=== PATIENT | female | born 1980 | race Caucasian/White ===

== ENCOUNTER 2018-04-14 06:50 | Day surgery (SDC) | payer MEDICAID, SELFPAY ==
[2018-04-14] VITALS (12 sets, daily range): BP systolic 105–152; BP diastolic 61–87; PULSE 62–90; RESP 12–18; TEMP 36.8–37.2; O2SAT 94–98
--- NOTE | 2018-04-14 08:34 | W.PM.DSUDISC ---
Discharge Plan Disposition Patient Disposition: HOME Condition: Good Discharge Details Attending Provider: Francesco Anaya Home Meds and New Rx's Prescriptions: New cephalexin [Keflex] 500 mg capsule 500 mg PO TID Qty: 21 RF: 0 morphine 15 mg tablet 15 mg PO Q6H PRN (Reason: pain) Qty: 10 RF: 0 Continue silver sulfadiazine [SSD] 1 % Cream 1 applic TOPICAL DAILY RF: 0 omega-3 fatty acids 1,000 mg Capsule 1 cap PO DAILY RF: 0 sertraline 100 mg Tablet 200 mg PO HS RF: 0 melatonin 3 mg Tablet 9 mg PO HS PRNRF: 0 vitamin B complex Capsule 1 cap PO DAILY RF: 0 cholecalciferol (vitamin D3) [Vitamin D3] 1,000 unit Capsule 1,000 unit PO DAILY RF: 0 pregabalin [Lyrica] 50 mg Capsule 100 mg PO HS RF: 0 pregabalin [Lyrica] 50 mg Capsule 50 mg PO .QAM RF: 0 Discharge Instructions Activity:: head of bed > 30 degrees Diet:: As Tolerated Discharge Orders Discharge Orders: Discharge Order (Routine); Ordered 04/14/18 Ordered By: Francesco Anaya DS: Diagnosis Discharge Diagnosis (1) Collapse of nasal valve: Status: Chronic (2) Nasal turbinate hypertrophy: Status: Chronic (3) Nasal septal spur: Status: Chronic (4) Sleep apnea in adult: Status: Chronic
[2018-04-14] MEDS: Lactated Ringers 1,000 ML 80 ML IV ×2 (08:39→09:26)
[2018-04-14] MEDS: Oxymetazolone 0.05% SPRAY 15 ML BTL (09:07)
[2018-04-14] MEDS: Ondansetron 4 MG/2 ML VIAL IVP (10:26)
[2018-04-14] MEDS: MORPHine 10 MG/ML VIAL IVP (10:33)
[2018-04-14] MEDS: ACETAMINOPHEN 1,000 MG/100 ML BTL 400 MG IVPB (10:50)
[2018-04-14] MEDS: Midazolam 2 MG/2 ML VIAL IVP (11:24)
[2018-04-14] MEDS: Normal Saline 10 ML VIAL IJ (12:32)
--- NOTE | 2018-04-14 15:21 | ROE_ITS ---
DATE OF PROCEDURE: April 14, 2018 PREOPERATIVE DIAGNOSIS: 1. Chronic nasal obstruction. 2. 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 3. Central sleep apnea. 4. Inferior turbinate hypertrophy. 5. Chronic nasal difficulty breathing. 6. Nasal septal deviation to the left. POSTOPERATIVE DIAGNOSIS: Same. PROCEDURE: 1. Nasal septal reconstruction. 2. Bilateral submucosal resection of inferior turbinates. 3. Bilateral repair of internal nasal valve with homograft and chalino graft. SURGEON: Francesco Anaya D.O. ANESTHESIA: General and 12 cc's of 1% Lidocaine with 1:100,000 epinephrine ESTIMATED BLOOD LOSS: 15 cc's COMPLICATIONS: None. CONDITION: The patient tolerated the procedure well. INDICATIONS FOR PROCEDURE: This is a pleasant 37-year-old female that presents with a history of chr onic nasal obstruction, difficulty breathing through her nose with a history of central sleep apnea. She has tried the Breath Right strips in the past with success. She has opted to proceed with surgi shirin correction despite maximum medical therapy. Risks and complications were discussed in detail. C onsent was placed in the chart. In terms of pain control, we discussed the risks of opioids intraope ratively and postoperatively. She has used morphine in the past without rash. The other over-the-co unters do bother her. We have agreed to provide her with a small 15 mg morphine pill which she will divide in half. She is instructed not to take the full dose for pain control, she can also take Tyle nol. PROCEDURE: The patient was brought back to the operative suite in stable condition, placed supine on the operating table and intubated in a normal fashion. The table was rotated 90 degrees. The patie nt was prepped with [employer]i-[employer]. Initially 10 cc's of 1% lidocaine with 1:100,000 epinephrine was in jected in the nasal septum bilaterally. Additional 2 cc's were used in the inferior turbinates as we ll as the lateral nasal alcazar. There was no intravascular injection. Afrin pledgets were placed. T he patient was prepped and draped in normal fashion. A time-out was taken to confirm proper patient and procedure. Initially a [place]-type incision was made in the left septal mucosa. The submucosal flap was elevat ed. A crossover incision through the cartilage with a septal knife was performed. A similar subperi chondrial submucosal flap was performed on the right side. The obstructive cartilage was removed. T here was a bony spur inferiorly, which was dissected carefully without mucosal tearing. This was rem maribel to alleviate the floor nasal obstruction spur. The cartilage was harvested, bisected and sculpt ed for homograft usage to the lateral nose. Infracartilaginous incision was made bilaterally, follow ed by stab incisions of the inferior turbinate. A 2.0 mm inferior turbinate blade was used to reduce the soft tissue of the turbinate and cartilage bilaterally, followed by L-fracture with [place] elevat or. #4-0 chromic gut suture were used to close the stab incisions. Next the guitar pick-shaped homograft cartilage was inserted in the direction of the pyriform sinus s erving as a chalino graft bilaterally. The infracartilaginous incisions were closed with a running #4 -0 chromic suture. The submucosal perichondral flaps of the nasal septum were reapproximated with #4 -0 plain gut suture. The patient tolerated the procedure well. She did have a little bit of extra b lood loss likely because of her herbals and omegas, we did use FloSeal before the dual splints. The dual splints were inserted, sutured to the columella with #2-0 silk suture. These were covered with Bactroban. She was stable to PACU.
== END 2018-04-14 13:28 | disposition home or self-care (01) ==
PROVIDERS: Visit Provider Otolaryngology Otolaryngology/Facial Plastic Surgery
PROC: (CPT 20912; principal; 2018-04-14 08:15)
DX: J34.89 Other specified disorders of nose and nasal sinuses (principal); R09.81 Nasal congestion; G47.31 Primary central sleep apnea; J34.3 Hypertrophy of nasal turbinates; J34.2 Deviated nasal septum
CPT/HCPCS: 20912; 30140; 30465; 30520; J0131; J0690; J1100; J2250; J2270; J2405